=== PATIENT | male | born 1995 | race African-American/Black ===

== ENCOUNTER 2024-03-08 14:40 | Emergency (ER) | payer SELFPAY ==
[~2024-03-08] VITALS: Ht 175.3 cm; Wt 82.0 kg
[2024-03-08 15:01] VITALS: BP 169/105; PULSE 110; RESP 16; TEMP 97.8; O2SAT 99
== END 2024-03-08 16:51 | disposition home or self-care (01) ==
LOC: ER 14:40
DX: R55 Syncope and collapse (principal); J45.909 Unspecified asthma, uncomplicated; Z88.6 Allergy status to analgesic agent
CPT/HCPCS: 99283